=== PATIENT | female | born 1965 | race Caucasian/White ===

== ENCOUNTER 2017-02-19 22:59 | Emergency (ER) | payer SELFPAY ==
--- NOTE | 2017-02-19 23:33 | EDPHY ---
H & P Stated Complaint: wants alcohol detox Source: Patient Exam Limitations: No limitations - Personal History LMP (Females 10-55): Post Menopausal Current Tetanus/Diphtheria Vaccine: Yes Tetanus Vaccine Date: less than 5 years - Medical/Surgical History Hx Asthma: No Hx Chronic Respiratory Disease: No Hx Diabetes: No Hx Cardiac Disease: No Hx Renal Disease: No Hx Cirrhosis: No Hx Alcoholism: Yes Hx HIV/AIDS: No Hx Splenectomy or Spleen Trauma: No Other PMH: PMHx: chronic back pain, hypothyroidism, depression. PSHx: jaw surgery at age 18. R/O Scleroderma - Social History Smoking Status: Current every day smoker Time Seen by Provider: 02/19/17 23:32 HPI/ROS: HPI: This is a 51-year-old female presents with Chief Complaint: wants alcohol detox Location: Body Quality: Alcohol detox Duration: Years Signs and Symptoms: No suicidal ideation, no homicidal ideation, no hallucinations, + chronic dry cough, no wheezing, no shortness of breath, no chest pain Timing: Daily Severity: Moderate to severe Context: Patient reports that she was sober for 20 years but for the last several years she has started to drink vodka daily and large quantities. Last drink was approximately 3 days ago. She denies having any alcohol withdrawal seizures. Denies suicidal ideation and back/homicidal ideation. She is here with her boyfriend to get detox from alcohol and to go into a rehab center. She is a daily tobacco user. Boyfriend is concerned that she is damaging her lungs. No prior history of asthma/COPD. Does not use nebulizers or inhalers. Modifying Factors: None Comment: ROS: see HPI Constitutional: No fever, no chills, no weight loss Eyes: No blurred vision Respiratory: No shortness of breath, no cough Cardiovascular: No chest pain Gastrointestinal: No nausea, no vomiting, no diarrhea Genitourinary: No dysuria Extremities: No myalgias Neurologic: No weakness, no numbness Skin: No rashes Hematologic: No bruising, no bleeding MEDICAL/SURGICAL/SOCIAL HISTORY: Medical history: Tobacco user Surgical history: Denies Social history: Unemployed CONSTITUTIONAL: awake and alert, no obvious distress HEENT: Atraumatic and normocephalic, PERRL, EOMI. Tympanic membranes clear. Oropharynx clear, no exudate and moist pink mucosa. Airway patent. No lymphadenopathy. No meningismus. Cardiovascular: Normal S1/S2, regular rate, regular rhythm, without murmur rub or gallop. PULMONARY/CHEST: Symmetrical and nontender. Clear to auscultation bilaterally. Good air movement. No accessory muscle usage. ABDOMEN: Soft, nondistended, nontender, no rebound, no guarding, no peritoneal signs, no masses or organomegaly. No CVAT. EXTREMITIES: 2/2 pulses, strength 5/5, no deformities, no clubbing, no cyanosis or edema. NEUROLOGICAL: no focal neuro deficits. GCS 15. SKIN: Warm and dry, no erythema. no rash. Good capillary refill. (Marcelina To) Constitutional: Initial Vital Signs Temperature (C) 36.5 C 02/19/17 23:03 Heart Rate 86 02/19/17 23:03 Respiratory Rate 14 02/19/17 23:03 Blood Pressure 138/91 H 02/19/17 23:03 O2 Sat (%) 93 02/19/17 23:03 O2 Delivery Mode Room Air Allergies/Adverse Reactions: morphine Allergy (Verified 03/30/13 15:51) Home Medications: Medication Instructions Recorded Cyclobenzaprine [Flexeril 10 MG 10 mg PO TID PRN #45 tab 11/21/15 (*)] Gabapentin [Neurontin 300 MG (*)] 300 mg PO BID@08,12 #90 cap 11/21/15 Gabapentin [Neurontin 300 MG (*)] 600 mg PO HS #120 cap 11/21/15 LORazepam [Ativan (*)] 0.5 - 1 mg PO Q6 PRN #30 tab 11/21/15 Levothyroxine [Synthroid 137 mcg 137 mcg PO DAILY06 #15 tab 11/21/15 (*)] QUEtiapine FUMARATE [Seroquel 50 150 mg PO HS #90 tab 11/21/15 mg (*)] Venlafaxine Xr [Effexor Xr] 150 mg PO BID #60 cap 11/21/15 Zolpidem Tartrate [Ambien 5MG (*)] 10 mg PO HS PRN #30 tab 11/21/15 Medical Decision Making - Diagnostics Imaging Results: Imaging Impressions Chest X-Ray 02/19/17 23:40 Impression: 1. Mild peribronchial thickening suggesting airways disease/bronchitis. 2. Additional findings as above. ED Course/Re-evaluation: chest x-ray ordered Chest x-ray my read via PAC shows mild peribronchial thickening; no effusion/ opacity/pneumothorax CIWA=0 Patient is able to walk without assistance, vital signs are stable, prepack of Librium given and discharged to the [facility] (Marcelina To) Differential Diagnosis: Differential diagnosis includes but is not limited to electrolyte imbalance, bronchitis, emphysema, alcohol intoxication. (Marcelina To) Other Provider: PHYSICIAN DOCUMENTATION: The patient was evaluated and managed by the Physician Investment Banking Associate. My co- signature indicates that I have reviewed this chart and I agree with the findings and plan of care as documented. I am the secondary supervising physician. (Lois Aguilar) - Data Points Medications Given: Discontinued Medications Chlordiazepoxide (Librium 25 Mg Prepack#6) 1 btl TAKEHOME EDNOW ONE Stop: 02/20/17 00:55 Last Admin: 02/20/17 01:02 MDT Dose: 1 btl Departure - Departure Disposition: Other Psych, Not [place] Clinical Impression: Alcohol abuse Alcohol intoxication Qualifiers: Complication of substance-induced condition: uncomplicated Qualified Code(s): F10.920 - Alcohol use, unspecified with intoxication, uncomplicated Condition: Good Instructions: Chlordiazepoxide/Clidinium (By mouth), Alcohol Withdrawal (ED), Alcohol Dependence (ED) Referrals: Aubrey Winters MD [Primary Care Provider] - As per Instructions [facility] Detox 24 Hours [Outside] - As per Instructions
[2017-02-20] MEDS ORDERED: CHLORDIAZEPOXIDE 25MG PREPK#6 BTL TAKEHOME ONE (00:54)
[2017-02-20 01:11] VITALS: BP 120/95; PULSE 82; RESP 18; TEMP 97.5; O2SAT 95
== END 2017-02-20 01:11 ==
DX: F10.129 Alcohol abuse with intoxication, unspecified (principal); F17.200 Nicotine dependence, unspecified, uncomplicated

== ENCOUNTER 2017-05-17 23:41 | Inpatient (IN) | payer MEDICAID ==
[2017-05-17] MEDS ORDERED: NS 1,000 ML IV ONE ×2 (23:51→23:52)
--- NOTE | 2017-05-17 23:51 | CPEKG ---
Heart Rate: 99 RR Interval: 606 P-R Interval: 156 QRSD Interval: 116 QT Interval: 400 QTC Interval: 514 P [place]: 69 QRS [place]: 67 T Wave [place]: 32 EKG Severity - ABNORMAL ECG - EKG Impression: SINUS RHYTHM EKG Impression: NONSPECIFIC INTRAVENTRICULAR CONDUCTION DELAY Electronically Signed By: José Miguel Gibbs 18-May-2017 07:56:38
[2017-05-17] MEDS ORDERED: PROPOFOL/EMULSION 1,000 MG/100 ML BOTTLE IV ONE (23:52)
[2017-05-17] MEDS ORDERED: SUCCINYLCHOLINE CHLORIDE 200 MG/10 ML SYR IVP ONE (23:52)
[2017-05-17] MEDS ORDERED: ETOMIDATE 40 MG/20 ML INJ IVP ONE (23:52)
[2017-05-17] MEDS ORDERED: fentaNYL 100 MCG/2 ML INJ ONE (23:52)
[2017-05-17] MEDS ORDERED: MIDAZOLAM 2 MG/2 ML VIAL IVP ONE (23:54)
[2017-05-17] MEDS ORDERED: fentaNYL 100 MCG/2 ML INJ IVP ONE (23:54)
--- NOTE | 2017-05-18 00:05 | EDPHY ---
H & P HPI/ROS: HPI CHIEF COMPLAINT: Polypharmacy overdose suicidal ideation, M1 hold HISTORY OF PRESENT ILLNESS: This patient is a 51-year-old female she presents emergency room emergently by ambulance for polypharmacy overdose. According to EMS they report that she took 10-20 pills of doxepin 50mg, as well as her levothyroxine, as well as alcohol, as well as possible opioids, this id according to her boyfriend who called 911. Her boyfriend according to EMS found her very somnolent. EMS reports when they found her she was unable to really answer any questions, she would have desaturations down into the low 70s , and agonal respirations. At time she would have purposeful movements in route. They did place a nasopharyngeal airway and bagged her into the emergency room. Unclear how much levothyroxine, additionally it is unclear how much alcohol and or opioid she had this evening. Upon arrival to the emergency room she was greeted ER room 2. I did evaluate her she had pinpoint pupils. EMS reports her glucose was normal. Upon assessment she was de-satting down to 70% with respiratory rate at 6. She was given 1 mg of Narcan EN route by EMS did not really help with her mental status. No trauma reported. Patient's history is limited due to patient's mental state. No family at bedside. Due to the patient being very lethargic and not responding to verbal or painful stimuli and not protecting her airway with desaturations into the 70s and respiratory rate is 6 I elected to emergently intubate her in the emergency room upon arrival. Upon Arrival: Blood pressure 120 known over 98, heart rate 104, pulse ox 100% intubated. Medical history previous reviewed from previous chart. Past Medical History: Chronic back pain, thyroid disease, depression, scleroderma previous suicide attempt with drug overdose, history of alcoholism Past Surgical History: Jaw surgery Social History: Lives in [place]. Unknown drugs alcohol tobacco but reported alcohol this evening. Family History: Unknown ROS REVIEW OF SYSTEMS: Limited due to patient's mental state. Exam Constitutional minimally responsive, blood pressure and heart rate were stable upon arrival however pulse ox 70%. Eyes pupils 2 mm equal HENT normal inspection, atraumatic, moist mucus membranes, no epistaxis, neck supple/ no meningismus, no raccoon eyes. Respiratory low respiratory rate of 6. Shallow respirations. Cardiovascular tachycardic Gastrointestinal soft nontender. Musculoskeletal no evidence of musculoskeletal trauma. Skin warm, atraumatic scan, Neurologic extremely lethargic. Heme/Lymph/Immune no lymphadenopathy. 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 Patient be placed on M1 hold by police. Patient need to be admitted ICU for respiratory failure and polypharmacy overdose. Re-evaluation: ED x-ray chest one view: Oral gastric tube is in appropriate position. On the left chest wall the orogastric tube sits over the left chest wall. Additionally the endotracheal tube was slightly high. It will be advanced 1 cm. EKG interpretation by me on record in [employer] [facility] system. Impression time of EKG 2044, sinus rhythm rate of 99 your asses 116 no acute ischemic changes. No signs of cardiac arrhythmia. Critical Care: Total Critical Care Time Spent Managing this Patient: 85 Minutes. This time was spent Exclusively with this patient. This Care was exclusive of procedures. The Organ System/life at risk was respiratory, cardiogenic, SENIOR RADIATION THERAPIST depression This Patient was in Critical Condition because respiratory failure, polypharmacy overdose I did consult poison Control case number below. They recommend supportive care , airway protection, bicarb pushes at the QRS widened greater than 120. Additionally due to the levothyroxine overdose they recommend after discharge she has good discharge plan in place and that her heart rate and temperature needs to be checked twice a day as levothyroxine overdose can cause tachycardia and increase temperature. CASE #: [id number] 1220: Serum alcohol 269. Intubation Procedure: Patient was intubated emergently with RSI medications. She received 20 mg IV etomidate, 100 mg of succinylcholine. Patient was preoxygenated with a non-rebreather and high-flow nasal cannula. Suches scope was used for direct visualization of the cords. Initial attempt with a 7 0 endotracheal tube was unsuccessful due to the small airways opening. A 6.0 endotracheal tube was placed under direct visualization with glide scope. The tube was confirmed in placement with chest x-ray, additionally humidified air, additionally capnography for, and good breath sounds bilaterally Chest x-ray one view reviewed shows the 6 0 endotracheal tube slightly high. Will be advanced 2 cm and a repeat chest x-ray will be done. 1244AM: Patient re-evaluated at this time heart rate 105, blood pressure 103/73 , pulse ox 100% intubated on ventilator. EKG interpretation by me on record in [employer] system. Impression repeat EKG time 12:33 a.m: Sinus rhythm rate of 99, QRS interval 112. Otherwise unremarkable EKG. 1244AM: Spoke with Dr. Da Silva hospitalist service agrees to admit this patient to the intensive care unit. ED x-ray chest one view: Repeat x-ray reviewed. The endotracheal tube has advanced slightly will advance another 2 cm. 1246AM: Tylenol level noted to be 17. Will need to repeat this. I updated the hospitalist service on this. Final Diagnosis: Polysubstance overdose, respiratory failure, TCA overdose, alcohol intoxication, suicide attempt 1253: spoke with Poison control recommends repeat tylenol level at 3am. Time of Ingestion is possible 11pm. 0118AM: ED x-ray chest: 3rd x-ray performed for endotracheal tube advancement. The tube is in good position at this time. Source: Patient, Police, EMS - Personal History Tetanus Vaccine Date: less than 5 years - Medical/Surgical History Hx Asthma: No Hx Chronic Respiratory Disease: No Hx Diabetes: No Hx Cardiac Disease: No Hx Renal Disease: No Hx Cirrhosis: No Hx Alcoholism: Yes Hx HIV/AIDS: No Hx Splenectomy or Spleen Trauma: No Other PMH: PMHx: chronic back pain, hypothyroidism, depression. PSHx: jaw surgery at age 18. R/O Scleroderma - Social History Smoking Status: Current every day smoker Constitutional: Initial Vital Signs Temperature (C) 34.1 C L 05/17/17 23:44 Heart Rate 106 H 05/17/17 23:44 Respiratory Rate 14 05/17/17 23:44 Blood Pressure 107/75 05/17/17 23:44 O2 Sat (%) 100 05/17/17 23:44 O2 Delivery Mode Ventilator O2 (L/minute) 15 Allergies/Adverse Reactions: morphine Allergy (Verified 05/18/17 01:12) Home Medications: Medication Instructions Recorded Levothyroxine [Synthroid 137 mcg 137 mcg PO DAILY06 #15 tab 11/21/15 (*)] Medical Decision Making - Data Points Laboratory Results: Laboratory Results 05/17/17 23:45 05/17/17 23:45 Medications Given: Enoxaparin Sodium (Lovenox) 40 mg SC DAILY JOSE Stop: 11/14/17 08:59 Last Admin: 05/18/17 08:59 Dose: 40 mg Midazolam HCl 50 mg/ Sodium (Chloride) 50 mls @ 0 mls/hr IV CONT JOSE; As Directed PRN Reason: Protocol Stop: 05/27/17 23:44 Last Admin: 05/18/17 10:18 Dose: 50 mls Potassium Chloride/Dextrose/Sod Cl (D5w 1/2 Ns W/ 20 Kcl/L) 1,000 mls @ 100 mls /hr IV CONT JOSE Stop: 11/14/17 00:44 Last Admin: 05/18/17 12:20 Dose: 1,000 mls Nicotine (Nicoderm Cq) 14 mg TD DAILY JOSE Stop: 11/14/17 18:44 Last Admin: 05/18/17 18:46 Dose: 14 mg Discontinued Medications Etomidate (Etomidate) 20 mg IVP EDNOW ONE Stop: 05/17/17 23:53 Last Admin: 05/17/17 23:50 Dose: 20 mg Fentanyl (Sublimaze) 100 mcg IVP EDNOW ONE Stop: 05/17/17 23:55 Last Admin: 05/18/17 00:00 Dose: 100 mcg Sodium Chloride (Ns) 1,000 mls @ 0 mls/hr IV EDNOW ONE; Wide Open PRN Reason: Protocol Stop: 05/17/17 23:52 Last Admin: 05/18/17 00:02 Dose: 1,000 mls Sodium Chloride (Ns) 1,000 mls @ 0 mls/hr IV ONCE ONE PRN Reason: Wide Open Stop: 05/17/17 23:53 Last Admin: 05/17/17 23:45 Dose: 1,000 mls Sodium Chloride (Ns) 1,000 mls @ 0 mls/hr IV ONCE ONE PRN Reason: Wide Open Stop: 05/18/17 00:53 Last Admin: 05/18/17 00:10 Dose: 1,000 mls Midazolam HCl (Versed) 5 mg IVP EDNOW ONE Stop: 05/17/17 23:55 Last Admin: 05/18/17 00:00 Dose: 5 mg Succinylcholine Chloride (Quelicin) 100 mg IVP EDNOW ONE Stop: 05/17/17 23:53 Last Admin: 05/17/17 23:49 Dose: 100 mg Departure - Departure Disposition: [facility] Acute Clinical Impression: Drug overdose Qualifiers: Encounter type: initial encounter Injury intent: intentional self-harm Qualified Code(s): T50.902A - Poisoning by unspecified drugs, medicaments and biological substances, intentional self-harm, initial encounter Respiratory failure Qualifiers: Chronicity: acute Respiratory failure complication: hypoxia Qualified Code(s): J96.01 - Acute respiratory failure with hypoxia Alcohol intoxication Qualifiers: Complication of substance-induced condition: with unspecified complication Qualified Code(s): F10.929 - Alcohol use, unspecified with intoxication, unspecified Condition: Critical
[2017-05-18 00:08] LABS: PLATELET COUNT 276 10^3/uL (150-400)
[2017-05-18] MEDS ORDERED: ONDANSETRON 4 MG/2 ML VIAL ONE (00:08)
[2017-05-18] MEDS: MIDAZOLAM HCL 50 MG in NS 50 ML IV SCH ×3 (00:10→10:18)
[2017-05-18 00:18] LABS: INR 0.93 (0.83-1.16); PROTIME(PATIENT) 12.7 SEC (12.0-15.0)
--- NOTE | 2017-05-18 00:35 | CPEKG ---
Heart Rate: 99 RR Interval: 606 P-R Interval: 156 QRSD Interval: 112 QT Interval: 396 QTC Interval: 509 P [place]: 59 QRS [place]: 44 T Wave [place]: 25 EKG Severity - ABNORMAL ECG - EKG Impression: SINUS RHYTHM EKG Impression: NONSPECIFIC INTRAVENTRICULAR CONDUCTION DELAY Electronically Signed By: José Miguel Gibbs 18-May-2017 07:56:38
[2017-05-18] MEDS ORDERED: NS 1,000 ML IV ONE (00:52)
--- NOTE | 2017-05-18 01:14 | PDGENHP ---
History and Physical - Chief Complaint Overdose - History of Present Illness 51 yo F w/ hx of depression presented to ED via EMS after overdose. According to EMS, patient took 10-20 pills of Doxepin 50 mg, as well as unknown amounts of levothyroxine, alcohol, and opiates. This was relayed by her boyfriend to found her and called 911. He is not present at bedside at the time of my evaluation. EMS placed a nasopharyngeal airway and she was bagged en route. EMS administered Narcan with little effect. Upon arrival to the ED patient was unable to protect airway so she was intubated. She is being admitted for monitoring in the ICU. History Information - Allergies/Home Medication List Allergies/Adverse Reactions: morphine Allergy (Verified 05/18/17 01:12) I have personally reviewed and updated: family history, medical history - Past Medical History Additional medical history: Depression - Family History Additional family history: Unable to obtain - Social History Smoking Status: Current every day smoker Review of Systems Review of Systems: Unable to obtain 2/2 mental status. Physical Exam Physical Exam: Temp Pulse Resp BP Pulse Ox 34.1 C L 106 H 14 107/75 100 05/18/17 00:45 05/18/17 00:45 05/18/17 00:45 05/18/17 00:45 05/18/17 00:45 Constitutional: no apparent distress, other (Intubated, unresponsive) Eyes: PERRL, other (Pinpoint pupils) Ears, Nose, Mouth, Throat: moist mucous membranes, no oral mucosal ulcers Cardiovascular: no murmur, rub, or gallop, tachycardia Respiratory: no respiratory distress, other (Intubated) Gastrointestinal: normoactive bowel sounds, soft, non-tender abdomen Skin: warm, normal color Neurologic: other (Unresponsive) Lab Data & Imaging Review 05/17/17 23:45 05/17/17 23:45 WBC 7.81 10^3/uL (3.80-9.50) 05/17/17 23:45 RBC 4.11 10^6/uL (4.18-5.33) L 05/17/17 23:45 Hgb 14.4 g/dL (12.6-16.3) 05/17/17 23:45 POC Hgb 14.6 gm/dL (12.6-16.3) 05/17/17 23:40 Hct 41.9 % (38.0-47.0) 05/17/17 23:45 POC Hct 43 % (38-47) 05/17/17 23:40 MCV 101.9 fL (81.5-99.8) H 05/17/17 23:45 MCH 35.0 pg (27.9-34.1) H 05/17/17 23:45 MCHC 34.4 g/dL (32.4-36.7) 05/17/17 23:45 RDW 14.9 % (11.5-15.2) 05/17/17 23:45 Plt Count 276 10^3/uL (150-400) 05/17/17 23:45 MPV 9.4 fL (8.7-11.7) 05/17/17 23:45 Neut % (Auto) 35.3 % (39.3-74.2) L 05/17/17 23:45 Lymph % (Auto) 50.8 % (15.0-45.0) H 05/17/17 23:45 [place] % (Auto) 11.3 % (4.5-13.0) 05/17/17 23:45 Eos % (Auto) 1.9 % (0.6-7.6) 05/17/17 23:45 Baso % (Auto) 0.6 % (0.3-1.7) 05/17/17 23:45 Nucleat RBC Rel Count 0.0 % (0.0-0.2) 05/17/17 23:45 Absolute Neuts (auto) 2.75 10^3/uL (1.70-6.50) 05/17/17 23:45 Absolute Lymphs (auto) 3.97 10^3/uL (1.00-3.00) H 05/17/17 23:45 Absolute Monos (auto) 0.88 10^3/uL (0.30-0.80) H 05/17/17 23:45 Absolute Eos (auto) 0.15 10^3/uL (0.03-0.40) 05/17/17 23:45 Absolute Basos (auto) 0.05 10^3/uL (0.02-0.10) 05/17/17 23:45 Absolute Nucleated RBC 0.00 10^3/uL (0-0.01) 05/17/17 23:45 Immature Gran % 0.1 % (0.0-1.1) 05/17/17 23:45 Immature Gran # 0.01 10^3/uL (0.00-0.10) 05/17/17 23:45 PT 12.7 SEC (12.0-15.0) 05/17/17 23:45 INR 0.93 (0.83-1.16) 05/17/17 23:45 APTT 23.3 SEC (23.0-38.0) 05/17/17 23:45 Puncture Site RIGHT RADIAL 05/18/17 00:35 Patient Temperature 37.0 DEGREES 05/18/17 00:35 pCO2 39 mmHg (34-38) H 05/18/17 00:35 pO2 263 mmHg (65-75) H 05/18/17 00:35 Total CO2 19 mEq/L (23-27) L 05/18/17 00:35 ABG pH 7.28 (7.35-7.45) L 05/18/17 00:35 ABG PO2/FiO2 Ratio 438 RATIO 05/18/17 00:35 ABG HCO3 18 mEq/L (22-26) L 05/18/17 00:35 ABG O2 Saturation 99 % (92-95) H 05/18/17 00:35 ABG Base Excess -7.9 mEq/L (-2.5-2.5) L 05/18/17 00:35 O2 Concentration % 60 % (0-100) 05/18/17 00:35 Actual Respiration Rate 12 05/18/17 00:35 Set Respiration Rate 12 05/18/17 00:35 SIMV YES 05/18/17 00:35 Tidal Volume 500 05/18/17 00:35 End Tidal CO2 32 05/18/17 00:35 PEEP 5 05/18/17 00:35 Peak Inspir Pressure 17 05/18/17 00:35 Pressure Support 10 05/18/17 00:35 POC Sodium 141 mEq/L (135-145) 05/17/17 23:40 Sodium 147 mEq/L (135-145) H 05/17/17 23:45 POC Potassium 3.0 mEq/L (3.3-5.0) L 05/17/17 23:40 Potassium 3.6 mEq/L (3.5-5.2) 05/17/17 23:45 POC Chloride 106 mEq/L (97-110) 05/17/17 23:40 Chloride 106 mEq/L (97-110) 05/17/17 23:45 Carbon Dioxide 17 mEq/l (22-31) L 05/17/17 23:45 Anion Gap 24 mEq/L (8-16) H 05/17/17 23:45 POC BUN 9 mg/dL (7-23) 05/17/17 23:40 BUN 9 mg/dL (7-23) 05/17/17 23:45 Creatinine 1.0 mg/dL (0.6-1.0) 05/17/17 23:45 POC Creatinine 1.2 mg/dL (0.6-1.0) H 05/17/17 23:40 Estimated GFR 59 05/17/17 23:45 Glucose 93 mg/dL (70-100) 05/17/17 23:45 POC Glucose 96 mg/dL (70-100) 05/17/17 23:40 Calcium 10.6 mg/dL (8.5-10.4) H 05/17/17 23:45 Magnesium 2.0 mg/dL (1.6-2.3) 05/17/17 23:45 Total Bilirubin 0.3 mg/dL (0.1-1.4) 05/17/17 23:45 Conjugated Bilirubin 0.3 mg/dL (0.0-0.5) 05/17/17 23:45 Unconjugated Bilirubin 0.0 mg/dL (0.0-1.1) 05/17/17 23:45 AST 94 IU/L (14-46) H 05/17/17 23:45 ALT 99 IU/L (9-52) H 05/17/17 23:45 Alkaline Phosphatase 88 IU/L (38-126) 05/17/17 23:45 Troponin I < 0.012 ng/mL (0.000-0.034) 05/17/17 23:45 Total Protein 7.6 g/dL (6.3-8.2) 05/17/17 23:45 Albumin 4.9 g/dL (3.5-5.0) 01/30/18 23:45 Lipase 198 IU/L (23-300) 05/17/17 23:45 Salicylates < 1.0 mg/dL (2.0-20.0) L 05/17/17 23:45 Urine Opiates Screen NEGATIVE (NEGATIVE) 05/17/17 23:59 Acetaminophen 17 mcg/mL (10-30) 05/17/17 23:45 Urine Barbiturates NEGATIVE (NEGATIVE) 05/17/17 23:59 Ur Phencyclidine Scrn NEGATIVE (NEGATIVE) 05/17/17 23:59 Ur Amphetamine Screen NEGATIVE (NEGATIVE) 05/17/17 23:59 U Benzodiazepines Scrn NEGATIVE (NEGATIVE) 05/17/17 23:59 Urine Cocaine Screen NEGATIVE (NEGATIVE) 05/17/17 23:59 U Marijuana (THC) Screen NEGATIVE (NEGATIVE) 05/17/17 23:59 Ethyl Alcohol 269 mg/dL (0-10) H 05/17/17 23:45 Imaging Review: CT Head prelim: Atrophy No bleed, mass or acute stroke Called to ER @ 1235 hrs Visualized and Interpreted EKG results: Yes EKG Interpretation: Positive for: normal sinsus rhythm, other (QRS 116->112, QTc (mean) 493->488) Assessment & Plan Assessment: 51 yo F w/ hx of depression presents after polypharmacy overdose requiring intubation. Plan: 1. Acute toxic encephalopathy - Due to polypharmacy ingestion. Unable to protect airway upon arrival so intubated for airway protection. - Wean mechanical ventilation as able 2. TCA overdose - Per EMS, patient took 10-20 Doxepin 50 mg tabs along with unknown doses of LTX, opiates, and ETOH. Patient severely encephalopathic and displaying tachycardia. QRS 116->112, QTc(mean) 493->488 and in sinus rhythm on ECG's thus far. - Admit to ICU for observation - Poison control contacted, Case # [id number] - Monitor on telemetry, q4h ECGs ordered - Sodium Bicarb for widening QRS or other conduction abnormalities 3. LTX ingestion - Unclear amount ingested. Poison control recommending twice daily monitoring of vitals for 10 day period. 4. Elevated APAP level - Unknown amount and time of ingestion. Poison control recommending repeat value at 3 AM to ascertain trend. 5. Tachycardia - S/p 3 L IVF in ED, possibly 2/2 TCA ingestion. Will continue mIVF. 6. Hypokalemia - mIVF w/ K, monitor lytes closely. 7. Depression with acute suicidality - Placed on M1 hold. Diet - NPO Code - Full Ppx - LMWH Dispo - Admit to ICU under inpatient status
[2017-05-18] MEDS ORDERED: ETOMIDATE 40 MG/20 ML INJ ONE (02:01)
[2017-05-18] MEDS ORDERED: SUCCINYLCHOLINE CHLORIDE 200 MG/10 ML SYR IVP ONE (02:01)
[2017-05-18] MEDS: D5W 1/2 NS W/ 20 KCl/L 1,000 ML IV SCH ×2 (02:02→12:20)
[2017-05-18] MEDS ORDERED: MIDAZOLAM 2 MG/2 ML VIAL ONE (03:04)
[2017-05-18 05:53] LABS: PLATELET COUNT 190 10^3/uL (150-400)
[2017-05-18] MEDS: ENOXAPARIN 40 MG/0.4 ML SYR SC SCH (08:59)
--- NOTE | 2017-05-18 09:14 | PDMN ---
Medical Necessity Medical necessity: Pt meets INPT criteria per MD as of 05/18/17; est. LOS >2 MN for eval/tx of acute toxic encephalopathy d/t polypharmacy ingestion; requiring intubation/mech ventilation, ICU monitoring per H&P.
--- NOTE | 2017-05-18 09:17 | CPEKG ---
Heart Rate: 87 RR Interval: 690 P-R Interval: 148 QRSD Interval: 94 QT Interval: 388 QTC Interval: 467 P [place]: 52 QRS [place]: 16 T Wave [place]: 33 EKG Severity - NORMAL ECG - EKG Impression: SINUS RHYTHM Electronically Signed By: Michael Friedman 19-May-2017 13:02:45
--- NOTE | 2017-05-18 12:04 | ASMTCASEMG ---
Living Arrangements What is your living Answers: With Spouse arrangement? Who do you live with? Type Of Residence What kind of residence do Answers: House you live in? Discharge Plan Comments Coordination Status Comments Notes: Pt is a 51 y/o female admitted for an overdose. Pt was found by her boyfriend. Pt is currently on an M1 hold. Pt will be evaluated by [facility] once medically cleared. Pt had to be intubated and may be extubated today. Pt has a hx of depression. CM available for d/c needs. Plan: Inpatient psychiatric hospital Date Signed: 05/18/2017 12:03 PM Electronically Signed By:CARIDAD Crooks
--- NOTE | 2017-05-18 14:07 | GCON ---
[f rep st] CONSULTATION PULMONARY/CRITICAL CARE CONSULTATION DATE OF CONSULTATION: 05/18/2017 REFERRING PHYSICIAN: Adam Da Silva MD REASON FOR REFERRAL: Evaluation and management of respiratory failure after overdose. HISTORY: The patient is a 51-year-old woman with a history of depression and prior suicide attempts who apparently took 10-20 pills of 50 mg doxepin, as well as levothyroxine, alcohol, and opiates. Sh sasha was found by her boyfriend who called 12-17-1. A nasopharyngeal airway was placed, and the patient w as bagged en route. Narcan did not reverse the patient's unresponsiveness. The patient was unable t o protect her airway, so she was intubated in the emergency department and was transferred to the [facility] care unit. She was placed on Versed because she started becoming intermittently agitated whil e intubated. I have asked that that be weaned down, and the patient is now somnolent but is arousabl e, but not reliably following commands. PAST MEDICAL HISTORY: Depression. MEDICATIONS: Flexeril, Neurontin, Ativan, Synthroid, Seroquel, Effexor, and Ambien. ALLERGIES: Morphine. SOCIAL HISTORY: The patient smokes. FAMILY HISTORY: Unable to obtain. REVIEW OF SYSTEMS: Unable to obtain due to mental status. PHYSICAL EXAMINATION: GENERAL: The patient is intubated and sedated but is arousable. She does not reliably follow commands. VITAL SIGNS: Blood pressure is 107/69 with a heart rate of 88. Her temp erature is 35.5. Her oxygen saturations are 100% on 40% oxygen. HEENT: Normocephalic and atraumati c. No icterus. NECK: No JVD. Trachea is midline. CHEST: Clear to auscultation. CARDIAC: Regul ar rate and rhythm without murmur. ABDOMEN: Soft, nontender. Bowel sounds are present. EXTREMITIE S: No clubbing, cyanosis, or edema. NEURO: The patient is somnolent/sedated but arousable with nox ious stimuli. She moves all extremities. LABORATORY: Hemoglobin is 11.1, down from 14.4. White blood count is 4.3. Chemistry group is remar kable for a carbon dioxide level of 18. Her anion gap is 14, down from 24 at admission. Her potassi um is 4.1, glucose is 106, calcium is 8.0, down from 10.6. AST is mildly elevated at 94 with a bilir ubin of 0.3. INR is 0.9. An arterial blood gas shows a pH of 7.30 with a pO2 of 136, a CO2 of 39, a nd a bicarbonate of 20 on 40% oxygen with set rate of 12, an actual rate of 16, and a tidal volume of 500 cc. An alcohol level is 269 at admission. Urine tox screen is negative. Acetaminophen level i s less than 10 after being 17 at admission. Salicylates are less than 1. A chest x-ray shows some left basilar atelectasis. The endotracheal tube is appropriately positioned . Images were reviewed by me. An electrocardiogram shows sinus rhythm with a QT of 396 and a heart rate of 99. Tracing reviewed by me. ASSESSMENT: 1. Polysubstance overdose. This was narcotics as well as tricyclic antidepressants and alcohol. Olivia baez did not initially respond to Narcan, but is now starting to respond spontaneously. She does have a Versed drip, which may be contributing to some of her sedation currently. 2. Acute respiratory failure. This is due to airway protection as well as acidosis, likely respirat ory and metabolic. She clinically is improved and has good urine output and blood pressure with no e vidence of renal failure or significant hepatic failure. She is improved now with improved alertness and ability to protect her airway. 3. Elevated transaminases. These are just mildly elevated. She did have a therapeutic Tylenol leve l earlier, and an occult Tylenol overdose is also a possibility. However, I would expect that her tr ansaminases would be higher if the overdose had been early enough to have already been nearly elimina tamara from her system. RECOMMENDATIONS: 1. Hold Versed, hopefully extubate. 2. Repeat transaminases. 3. Repeat 12-lead ECG if the patient develops concerning changes on the monitor. 4. Once medically cleared, the patient can have a mental health evaluation. /[id number]/MODL
--- NOTE | 2017-05-18 15:43 | HOSPPROG ---
Hospitalist Progress Note Assessment/Plan: * intentional overdose * On tricyclics and possibly other antidepressants * Still little bit somnolent * Probably will be medically cleared tomorrow for psychiatric evaluation * depression Subjective: Extubated but still somnolent Objective: Vital Signs Temp Pulse Resp BP Pulse Ox 36 C 75 16 93/62 L 100 05/18/17 14:00 05/18/17 14:00 05/18/17 14:00 05/18/17 14:00 05/18/17 14:00 Laboratory Results 05/18/17 05:40 05/18/17 05:40 05/17/17 05/18/17 05/19/17 05:59 05:59 05:59 Intake Total 3389.7 Output Total 550 350 Balance 2839.7 -350 PT 12.7 SEC (12.0-15.0) 05/17/17 23:45 INR 0.93 (0.83-1.16) 05/17/17 23:45 - Physical Exam Constitutional: no apparent distress, appears nourished, not in pain Eyes: anicteric sclera, EOMI Cardiovascular: regular rate and rhythym Respiratory: no respiratory distress Neurologic: AAOx3, other (Somnolent) ICD10 Worksheet Patient Problems: Problems Problem Status Onset Alcohol intoxication Acute Drug overdose Acute Respiratory failure Acute
[2017-05-18] MEDS: NICOTINE 14 MG/24 HR PATCH TD SCH (18:46)
[2017-05-19] MEDS: NICOTINE 14 MG/24 HR PATCH TD SCH (09:03)
[2017-05-19] MEDS: ENOXAPARIN 40 MG/0.4 ML SYR SC SCH (09:03)
--- NOTE | 2017-05-19 14:40 | HOSPPROG ---
Hospitalist Progress Note Assessment/Plan: * intentional overdose * On tricyclics and possibly other antidepressants * Medically cleared for psychological evaluation * depression Subjective: Feels back to normal. States that she had been off her antidepressants due to weight gain and was drinking and high was impulsive about suicide attempt Objective: Vital Signs Temp Pulse Resp BP Pulse Ox 36.8 C 104 H 14 123/76 H 98 05/19/17 10:00 05/19/17 14:00 05/19/17 14:00 05/19/17 12:00 05/19/17 14:00 Laboratory Results 05/18/17 05:40 05/18/17 05:40 05/18/17 05/19/17 05/20/17 05:59 05:59 05:59 Intake Total 3389.7 2730 Output Total 550 3400 Balance 2839.7 -670 PT 12.7 SEC (12.0-15.0) 05/17/17 23:45 INR 0.93 (0.83-1.16) 05/17/17 23:45 - Physical Exam Constitutional: no apparent distress, appears nourished, not in pain Ears, Nose, Mouth, Throat: moist mucous membranes Cardiovascular: regular rate and rhythym Respiratory: no respiratory distress Skin: warm Neurologic: AAOx3 Psychiatric: interacting appropriately, not anxious, not encephalopathic, thought process linear ICD10 Worksheet Patient Problems: Problems Problem Status Onset Alcohol intoxication Acute Drug overdose Acute Respiratory failure Acute
[2017-05-19] MEDS ORDERED: MELATONIN 3 MG TAB PO PRN (20:18)
[2017-05-20] MEDS: NICOTINE 14 MG/24 HR PATCH TD SCH (06:00)
[2017-05-20 08:08] VITALS: O2SAT 100
[2017-05-20] MEDS: ENOXAPARIN 40 MG/0.4 ML SYR SC SCH (09:04)
[2017-05-20] MEDS ORDERED: LEVOTHYROXINE 137 MCG TAB PO SCH (11:45)
[2017-05-20 12:36] VITALS: BP 137/90; PULSE 94; RESP 20; TEMP 97.8
--- NOTE | 2017-05-20 12:37 | PDDCSUM ---
Discharge Summary Discharge Summary: This is a 51 yo female who was admitted after suicide attempt. She ingested Doxepin, Levothyroxine, ETOH, opiates, and possibly others. She was found to be unresponsive by her boyfriend who called EMS. She was admitted into the ICU. She was intubated as she could not protect her airway. She has been extubated and is now medically cleared for discharge to inpatient psych. DDX: #Suicide attempt #Polysubstance abuse #Hypothyroidism #Transaminitis, resolving, no e/o of tylenol OD #Acute Resp Failure, resolved #tobacco abuse d/o: nicotine patch #Insomnia, Melatonin PRN Exam: NAD AAOX3 no active suicidal ideations RRR CTA B No LE edema d/c Meds: see med rec total time spent on discharge is 35 minutes
[2017-05-21] MEDS ORDERED: LEVOTHYROXINE 137 MCG TAB PO SCH (06:00)
--- NOTE | 2017-05-24 13:36 | PQFORM ---
PHYSICIAN QUERY FORM Needs Your Response This query form is being sent to you to assure this patient record is coded properly. Please respond to the question below: PROCESS ENGINEERING INTERN QUESTION: Dr. Zuleta, The diagnosis of ACUTE TOXIC ENCEPHALOPATHY is documented in the H&p dated 2015.~ Would this be appropriate as an additional diagnosis on the discharge summary? Yes xxxx No Other Clinically Undetermined Many thanks, LUIS E Eduardo [facility]/Coding Department INSTRUCTIONS FOR RESPONSE: Answer question by clicking on the "Edit Document" button. Move cursor to area below the stars. When complete, hit "Save." Click on the "Sign" button, then click "Sign" again. Type in your PIN and hit "Enter." MTDD
== END 2017-05-20 12:43 | DRG 917 ==
LOC: EDUNIT# → EEVIPCON 05-18 00:43 → F2N 05-18 01:52
PROVIDERS: ADMIT Student in an Organized Health Care Education/Training Program; ATTEND Family Medicine
PROC: 0BH18EZ Insertion of Endotracheal Airway into Trachea, Via Natural or Artificial Opening Endoscopic (ICD-10-PCS; principal; 2017-05-18)
PROC: 5A1935Z Respiratory Ventilation, Less than 24 Consecutive Hours (ICD-10-PCS; principal; 2017-05-18)
DX: T43.012A Poisoning by tricyclic antidepressants, intentional self-harm, initial encounter (principal); T38.1X2A Poisoning by thyroid hormones and substitutes, intentional self-harm, initial encounter; T40.602A Poisoning by unspecified narcotics, intentional self-harm, initial encounter; G92 Toxic encephalopathy; J96.01 Acute respiratory failure with hypoxia; T51.0X2A Toxic effect of ethanol, intentional self-harm, initial encounter; F17.210 Nicotine dependence, cigarettes, uncomplicated; F32.9 Major depressive disorder, single episode, unspecified; R00.0 Tachycardia, unspecified; E87.6 Hypokalemia; Y90.8 Blood alcohol level of 240 mg/100 ml or more; Z91.5 Personal history of self-harm; E03.9 Hypothyroidism, unspecified; F19.121 Other psychoactive substance abuse with intoxication delirium; F10.929 Alcohol use, unspecified with intoxication, unspecified; M54.9 Dorsalgia, unspecified; G47.00 Insomnia, unspecified
CPT/HCPCS: 80305; 82607-90; 82947-QW; 96374; G0480; J0330; J1650; J2250; J2405; J2704; J3010

== ENCOUNTER 2017-05-20 13:03 | Inpatient (IN) | payer MEDICAID ==
[2017-05-20] MEDS ORDERED: NICOTINE POLACRILEX 2 MG GUM B PRN (13:47)
[2017-05-20] MEDS ORDERED: MAG HYDROX/AL HYDROX/SIMETH 30 ML UDCUP PO PRN (13:47)
[2017-05-20] MEDS ORDERED: MAGNESIUM HYDROXIDE 30 ML UDCUP PO PRN (13:47)
[2017-05-20] MEDS ORDERED: OLANZapine DISINTEGR 10 MG TAB PO PRN (13:47)
[2017-05-20] MEDS ORDERED: IBUPROFEN 200 MG TAB PO PRN (13:49)
[2017-05-20] MEDS ORDERED: ALBUTEROL 60 PUFFS/8 GM MDI IH PRN (14:00)
[2017-05-20] MEDS ORDERED: ALBUTEROL 200 PUFFS/18 GM MDI IH PRN (14:15)
[2017-05-20] MEDS ORDERED: chlordiazePOXIDE 25 MG CAP PO ONE (14:47)
[2017-05-20] MEDS ORDERED: chlordiazePOXIDE 25 MG CAP PO PRN (14:49)
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
[2017-05-20] MEDS: MELATONIN 3 MG TAB PO SCH (19:12)
[2017-05-20] MEDS: GABAPENTIN 300 MG CAP PO SCH (19:12)
[2017-05-21] MEDS: LEVOTHYROXINE 137 MCG TAB PO SCH (06:01)
[2017-05-21] MEDS: FOLIC ACID 1 MG TAB PO SCH (07:54)
[2017-05-21] MEDS: THIAMINE HCL 100 MG TAB PO SCH (07:54)
[2017-05-21] MEDS: MULTIVITAMINS 1 EACH TAB PO SCH (07:54)
[2017-05-21] MEDS: NICOTINE 14 MG/24 HR PATCH TD SCH (07:54)
[2017-05-21] MEDS ORDERED: NICOTINE 14 MG/24 HR PATCH TD SCH (09:00)
--- NOTE | 2017-05-21 14:28 | SOAPPROG ---
SOAP Progress Note Assessment/Plan: Assessment: 51 yo woman who OD'd on Doxepin, spent several days in ICU before transferring to . Plan: 05/21/17 14:24 1. Continue CIWA for another day. Has been scoring 0 today, but she did get one time dose of Librium yesterday b/c she asked for it, though she scored less than 5 on CIWA. 2. CCM - no changes, patient reports feeling "much better" denies feeling depressed, no SI/HI 3. F/U with [facility] next week Subjective: Met with patient, reviewed chart and d/w staff. Patient presents bright affect, cheerful, laughing, smiling when interacting with peers in group therapy and while playing games in milieu. She reports mood is "good" and enjoyed "music and art therapy," says they are "really helpful." Objective: Vital Signs Temp Pulse Resp BP Pulse Ox 36.3 C 103 H 12 168/103 H 97 05/21/17 09:57 05/21/17 13:43 05/21/17 13:43 05/21/17 13:43 05/21/17 13:43 MSE: Affect: Euthymic Mood: "Good" TP: Linear TC: Denies any SI/HI Insight/ Judgment: Fair - Time Spent With Patient Time Spent With Patient: 20" - Pending Discharge Pending Discharge Within 24 Hours: No Pending Discharge Within 48 Hours: No ICD10 Worksheet Patient Problems: Problems Problem Status Onset Depressive disorder Acute Generalized anxiety disorder with panic attacks Acute Hypothyroid Acute Insomnia Acute Alcohol intoxication Acute Drug overdose Acute Respiratory failure Acute
[2017-05-21] MEDS: OLANZapine DISINTEGR 10 MG TAB PO PRN (15:49)
[2017-05-21] MEDS: GABAPENTIN 300 MG CAP PO SCH (21:11)
[2017-05-21] MEDS: MELATONIN 3 MG TAB PO SCH (21:11)
[2017-05-21] MEDS: CEPACOL LOZENGE PO PRN ×2 (21:21→22:54)
[2017-05-22] MEDS: LEVOTHYROXINE 137 MCG TAB PO SCH (06:12)
[2017-05-22] MEDS: MULTIVITAMINS 1 EACH TAB PO SCH (07:51)
[2017-05-22] MEDS: THIAMINE HCL 100 MG TAB PO SCH (07:51)
[2017-05-22] MEDS: FOLIC ACID 1 MG TAB PO SCH (07:51)
[2017-05-22] MEDS: NICOTINE 14 MG/24 HR PATCH TD SCH (07:51)
[2017-05-22] MEDS: OLANZapine DISINTEGR 10 MG TAB PO PRN (08:06)
--- NOTE | 2017-05-22 12:53 | SOAPPROG ---
SOAP Progress Note Assessment/Plan: Assessment: 51 yo woman who OD'd on Doxepin, spent several days in ICU before transferring to . Plan: 05/21/17 14:24 1. Continue CIWA for another day. Has been scoring 0 today, but she did get one time dose of Librium yesterday b/c she asked for it, though she scored less than 5 on CIWA. 2. CCM - no changes, patient reports feeling "much better" denies feeling depressed, no SI/HI 3. F/U with [facility] next week 05/22/17 12:49 1. Patient feels "much better" but still reports "some anxiety." She received Librium last night from RN d/t CIWA of 10, however, patient reports that she was feeling "overwhelming" anxiety and denies any physical sxs associated with alcohol w/d. Today she denied any sxs of alcohol w/d and reported anxiety was "better" than last night. Will d/c CIWA and prescribe hydroxyzine to help with anxiety. Patient agreed with this plan. 2. Continue Gabapentin for anxiety. Patient says this med is "helping" and denies any SE's. 3. Patient has alcohol use disorder, and MD explained that as long as she continues to drink alcohol, it will be difficult to manage anxiety through medications. MD explained how alcohol makes anxiety problems worse, as well as its effect on mood. MD recommends CAC and CD IOP. 4. Patient is voluntary Subjective: Met with patient, reviewed chart and d/w staff. Patient says she doesn't want to use Zyprexa for anxiety b/c of fear of weight gain. She rode exercise bike for 8 miles this AM, and says she is trying to eat healthier and exercise to "fee better." She denies depressed mood and denies SI/HI. MD spent a lot of time talking to patient about her anxiety. She requested non-addictive med for anxiety, and MD agreed to prescribe hydroxyzine in addition to gabapentin. Patient agreed with this plan. Objective: Vital Signs Temp Pulse Resp BP Pulse Ox 36.6 C 85 20 134/92 H 99 05/21/17 21:28 05/22/17 05:00 05/22/17 05:00 05/22/17 05:00 05/22/17 05:00 MSE: Affect: Euthymic Mood: "Anxious, but better" TP: Linear TC: Denies any SI /HI Insight/Judgment: Fair - Time Spent With Patient Time Spent With Patient: 25" - Pending Discharge Pending Discharge Within 24 Hours: No Pending Discharge Within 48 Hours: No ICD10 Worksheet Patient Problems: Problems Problem Status Onset Depressive disorder Acute Generalized anxiety disorder with panic attacks Acute Hypothyroid Acute Insomnia Acute Alcohol intoxication Acute Drug overdose Acute Respiratory failure Acute
[2017-05-22] MEDS ORDERED: MELATONIN 3 MG TAB PO PRN (12:57)
[2017-05-22] MEDS: hydrOXYzine HCL 25 MG TAB PO PRN ×3 (14:45→22:48)
[2017-05-22 21:03] VITALS: RESP 16
[2017-05-22] MEDS: GABAPENTIN 300 MG CAP PO SCH (21:04)
[2017-05-22] MEDS: CEPACOL LOZENGE PO PRN (22:48)
[2017-05-23 06:48] VITALS: BP 117/28; PULSE 78; TEMP 97.5; O2SAT 98
[2017-05-23] MEDS: NICOTINE 14 MG/24 HR PATCH TD SCH (08:22)
[2017-05-23] MEDS: MULTIVITAMINS 1 EACH TAB PO SCH (08:22)
[2017-05-23] MEDS: FOLIC ACID 1 MG TAB PO SCH (08:22)
[2017-05-23] MEDS: hydrOXYzine HCL 25 MG TAB PO PRN (08:22)
[2017-05-23] MEDS: THIAMINE HCL 100 MG TAB PO SCH (08:22)
--- NOTE | 2017-05-23 08:42 | BDS ---
[f rep st] BEHAVIORAL HEALTH DISCHARGE SUMMARY Transfer from the [facility]. ADMITTING DIAGNOSES: 1. Unspecified depressive disorder. 2. Suicide attempt by doxepin overdose while intoxicated with alcohol. 3. Alcohol use disorder, severe. 4. Alcohol withdrawal. 5. Generalized anxiety disorder with panic attacks. 6. Chronic insomnia. 7. Hypothyroidism. 8. Rule out major depressive disorder, bipolar disorder type 2. IDENTIFICATION: This is a 51-year-old white female who lives with her boyfriend. The patient has a 9-year-old daughter who lives with her ex- in [place] as well. The patient has an adult son that lives in [place]. PSYCHIATRIC AND MEDICAL HISTORY: Please see Psychiatric Assessment and History dated May 20, 2017. ALLERGIES: She has listed allergies to morphine and trazodone. REASON FOR ADMISSION: The patient was transferred on an M1 hold from [facility] after the patient had overdosed on doxepin while intoxicated with alcohol. She had a blood alcohol level of 0.26 and was somnolent and had to be intubated and was in the intensive care unit for ventilation and transaminitis. INITIAL EXAM: The patient initially was an alert white female, ambulatory without tremors or focal weakness. Her speech was regular rate and rhythm. Her thoughts were organized. She described her mood as "anxious and wound up." Her affect was euthymic. She denied violent thoughts, auditory hallucinations , or paranoia. She reported she had suicidal thoughts prior to admission, but denied them after admission to the inpatient unit. She did appear to have some alcohol withdrawal symptoms including flushed skin, mild sweats, and a mild extension tremor upon admission. HOSPITAL COURSE: The patient was given 50 mg of Librium for alcohol withdrawal and then placed on the CIWA protocol. She received multivitamin, thiamine, and folic acid for alcohol use disorder. The patient declined to start medications for alcohol use disorder or referral to residential substance abuse treatment programs. However, the patient had Medicaid, which would not pay for residential substance abuse treatment, but the patient was agreeable to go to substance abuse recovery groups after discharge at [facility]. The patient had unclear history of a mood disorder separate from alcohol use. She reports she had been drinking the majority of the past 6 months and had been depressed during this time. However, it was unclear if the patient actually had a mood disorder separate from alcohol use. Patient did report chronic problems with sleep disturbance, generalized anxiety, and panic attacks when sober. The patient was given hydroxyzine for anxiety on the unit as well as gabapentin at night for insomnia. The patient was also given her Synthroid for hypothyroidism and started on a p.r.n. albuterol inhaler for possible COPD symptoms. On the unit, the patient did not have further alcohol withdrawal symptoms and was calm and appropriate, sleeping well and eating well, attending groups, appearing euthymic and appropriate, interacting appropriately with staff and other patients. She denied any suicidal or homicidal ideation. She did not have any psychotic symptoms, and she did not appear manic on the unit. The patient was agreeable to referral back to [facility] where she had previously received treatment for mental health issues as and to attend substance abuse recovery groups at [facility]. The patient had a positive attitude toward discharge. She reported that her boyfriend that she lives with was a support, had visited her several times in the hospitalization, would assist her in getting outpatient treatment. The patient also was able to complete a safety plan outlining her strengths, her supports, and her coping skills to use if having self-destructive thoughts. LABS: On May 18, 2017, she had a white blood cell count 4.2, hemoglobin 11.1, platelet count 190. On May 18, she had a sodium 144, potassium 4.1, creatinine 0.7, glucose 106, calcium 8.0, phosphorus 4.2, magnesium 1.6, total bilirubin 0.7, AST 62, ALT 75, triglycerides 50, LDL 85, HDL 79, B12 was 286, TSH 2.3. Free T4 0.8, free T3 2.3. The patient is postmenopausal. In the emergency room, the patient had a blood alcohol level of 269. Acetaminophen negative. Salicylate negative. Other drugs of abuse negative. Metabolic Screening : The patient was negative for the metabolic screening syndrome, but she is overweight and was counseled on a low-fat diet. ADVANCED DIRECTIVES: The patient declined to have an advance directive. NICOTINE USE DISORDER: The patient is a regular smoker and was started on a nicotine patch. CONSULTS: None. PROCEDURES: None. LABS PENDING: None. CONDITION ON DISCHARGE: She is an alert white female in no acute distress. She is ambulatory, cooperative, and pleasant with glasses. Her speech is regular rate and rhythm. Her thoughts are organized. Her mood is "pretty good. " Her affect is euthymic. She denies any thoughts to hurt herself or others. She denies auditory hallucinations or paranoia. She completed the safety plan worksheet. Her insight is fair. Her judgment is appropriate. DISCHARGE DIAGNOSES: 1. Alcohol-related depressive disorder. 2. Alcohol use disorder, severe. 3. Alcohol withdrawal. 4. Generalized anxiety disorder with panic attacks. 5. Insomnia. 6. Hypothyroidism. 7. Reactive airways disease. 8. Borderline vitamin B12 deficiency. 9. Borderline liver function test abnormalities. 10. Suicide attempt with Doxepin overdose while intoxicated with alcohol requiring intubation and ICU support DISPOSITION: The patient will be leaving the unit with a health care administrator to walk her across the street to [facility]. She will fill her prescriptions at the [facility] at that facility. The prescriptions were written for weekly pill boxes. The health care administrator will assist the patient enrolling in the substance abuse groups at [facility] and obtaining a psychiatry appointment. The patient reports she has an RTD bus pass to get home, but her boyfriend that she lives with, could also pick her up at the clinic to go home. FOLLOWUP: The patient is referred to [facility] for psychiatric followup and substance abuse treatment and referred to [facility] for outpatient medical followup. LEGAL STATUS: The patient was admitted on an M1 hold and then agreed to stay in the hospital on a voluntary basis. DISCHARGE MEDICATIONS: Are the following: Albuterol inhaler 2 puffs q.4 hours p.r.n. for shortness of breath; folic acid 1 mg p.o. daily; gabapentin 300 mg p.o. q.h.s.; hydroxyzine 25 mg p.o. q.h.s.; levothyroxine 137 mcg p.o. daily; melatonin 3 mg p.o. q.h.s. p.r.n. insomnia; multivitamin 1 tablet p.o. daily; NicoDerm patch 21 mg transdermal daily in the morning, remove at bedtime; thiamine 100 mg p.o. daily. The patient was counseled to have her outpatient provider recheck her liver function tests and her vitamin B12 level in 1 month if not drinking alcohol. /[id number]/MODL MTDD
[2017-05-23] MEDS ORDERED: LEVOTHYROXINE 137 MCG TAB PO SCH (10:00)
== END 2017-05-23 13:25 | disposition home or self-care (01) | DRG 897 ==
LOC: BBEH 13:03
PROVIDERS: ADMIT Psychiatry & Neurology Psychiatry
PROC: HZ2ZZZZ Detoxification Services for Substance Abuse Treatment (ICD-10-PCS; principal; 2017-05-20)
DX: F10.24 Alcohol dependence with alcohol-induced mood disorder (principal); F10.239 Alcohol dependence with withdrawal, unspecified; F41.1 Generalized anxiety disorder; F41.0 Panic disorder [episodic paroxysmal anxiety]; T43.012D Poisoning by tricyclic antidepressants, intentional self-harm, subsequent encounter; T38.1X2D Poisoning by thyroid hormones and substitutes, intentional self-harm, subsequent encounter; T40.602D Poisoning by unspecified narcotics, intentional self-harm, subsequent encounter; T51.0X2D Toxic effect of ethanol, intentional self-harm, subsequent encounter; F17.210 Nicotine dependence, cigarettes, uncomplicated; Z91.5 Personal history of self-harm; E03.9 Hypothyroidism, unspecified; F19.10 Other psychoactive substance abuse, uncomplicated; M54.9 Dorsalgia, unspecified; G47.00 Insomnia, unspecified; J45.909 Unspecified asthma, uncomplicated